=== PATIENT | female | born 1965 | race African-American/Black ===

== ENCOUNTER 2017-03-26 13:15 | Emergency (ER) | payer BC ==
[2017-03-26 14:39] LABS: #Eosinphils 0.1 thou/uL (0.0-0.7); #Lymphocytes 1.8 thou/uL (1.20-3.40); #Monocytes 0.5 thou/uL (0.11-0.59); #Neutrophils 3.2 thou/uL (1.40-6.50); %Basophils 0.6 % (0.0-1.0); %Eosinophils 2.6 % (0.0-10.0); %Lymphocytes 31.4 % (21.0-51.0); %Monocytes 9.1 % (0.0-10.0); %Neutrophils 56.2 % (42.0-75.0); Mean Corpuscular Hemoglobin 27.9 pg (27.0-31.0); Mean Corpuscular Volume 84.5 fl (81.0-99.0); Mean Platelet Volume 6.8 fL (7.4-10.4); Platelet Count 328 thou/uL (130-400); Red Blood Cell (RBC) Count 4.32 mill/uL (4.20-5.40); White Blood Cell (WBC) Count 5.7 thou/uL (4.8-10.8)
[2017-03-26 14:51] LABS: ALT (SGPT) 27 U/L (8-55); AST (SGOT) 19 U/L (5-34); Albumin 4.2 g/dL (3.5-5.0); Alkaline Phosphatase 70 U/L (40-150); Anion Gap 14 mmol/L (10-20); BUN (Urea Nitrogen) 14 mg/dL (9.8-20.1); Bilirubin, Total 0.5 mg/dL (0.2-1.2); Calc. Creatinine Clearance 0 mL/min (70-130); Calcium 9.5 mg/dL (7.8-10.44); Carbon Dioxide 25 mmol/L (22-29); Chloride 103 mmol/L (98-107); Estimated GFR-MDRD 80; Globulin 3.1 g/dL (2.4-3.5); Glucose 96 mg/dL (70-105); Lipase 15 U/L (8-78); Potassium 4.1 mmol/L (3.5-5.1); Protein, Total 7.3 g/dL (6.0-8.3); Sodium 138 mmol/L (136-145)
[2017-03-26 14:54] LABS: CKMB 2.5 ng/mL (0-6.6); Troponin I Less than 0.010 ng/mL (< 0.028)
--- NOTE | 2017-03-26 15:41 | RAD ---
AP VIEW CHEST: Date: 03/26/17 INDICATION: Chest pain with a history of influenza, cough, sore throat, and fever. COMPARISON: Prior exam dated 09/29/16. FINDINGS: No focal consolidation is evident. Heart size is accentuated by the exam technique. No acute osseous abnormality is evident. No definite pleural effusion is noted. Examination is not appreciably changed from the comparison study. IMPRESSION: No acute cardiopulmonary abnormality. POS: [facility]
[2017-03-26 17:46] LABS: Troponin I Less than 0.010 ng/mL (< 0.028)
== END 2017-03-26 17:59 | disposition home or self-care (01) ==
LOC: SCSER 13:15
DX: R07.9 Chest pain, unspecified (principal); I10 Essential (primary) hypertension; E78.5 Hyperlipidemia, unspecified; F41.9 Anxiety disorder, unspecified; Z79.899 Other long term (current) drug therapy; Z20.828 Contact with and (suspected) exposure to other viral communicable diseases
CPT/HCPCS: 36415; 71045; 80053; 82553; 83690; 84484; 85025; 93005

== ENCOUNTER 2018-06-30 14:28 | Outpatient (CLI) | payer BC ==
--- NOTE | 2018-06-30 16:08 | MRI ---
MRI OF BRAIN WITHOUT CONTRAST: 06/30/18 Multiplanar and multisequential imaging of the brain obtained. INDICATION: Ataxia. FINDINGS: The ventricles have normal size and position. No evidence of restricted diffusion. There is no mass o r edema. No evidence of white matter abnormality. No evidence of hemorrhage. The intracranial interna l carotid arteries and possible cerebral arteries show expected flow voids. Mucosal edema is seen in the floor of the left maxillary antrum and there is evidence of a mucosal re tention cyst at this location measuring up to 2 cm. IMPRESSION: 1. Unremarkable MRI of brain. 2. Mucosa edema with mucous retention cyst in the left maxillary sinus. POS: [facility]
== END 2018-06-30 14:29 | disposition home or self-care (01) ==
LOC: BICMRI 14:28
PROVIDERS: ATTEND Psychiatry & Neurology Neurology
DX: R27.0 Ataxia, unspecified (principal); G93.6 Cerebral edema; J34.1 Cyst and mucocele of nose and nasal sinus
CPT/HCPCS: 70551

== ENCOUNTER 2018-08-08 10:17 | Emergency (ER) | payer BC ==
[2018-08-08] MEDS ORDERED: Clopidogrel Bisulfate 75 MG TAB ONE (10:48)
[2018-08-08] MEDS ORDERED: Ketorolac Tromethamine 30 MG/ML VIAL ONE (10:49)
[2018-08-08] MEDS ORDERED: Aspirin Chewable 81 MG TAB ONE (10:54)
[2018-08-08 11:21] LABS: Hemoglobin 12.3 g/dL (12.0-16.0); Mean Corpuscular HGB CONC 32.1 g/dL (32.0-36.0); Mean Corpuscular Hemoglobin 27.5 pg (27.0-31.0); Mean Corpuscular Volume 85.7 fL (78.0-98.0); Platelet Count 226 thou/uL (130-400); RBC Distribution Width 14.3 % (11.5-14.5); Red Blood Cell (RBC) Count 4.48 mill/uL (4.20-5.40)
[2018-08-08 11:23] LABS: ALT (SGPT) 16 U/L (8-55); AST (SGOT) 14 U/L (5-34); Albumin 4.3 g/dL (3.5-5.0); Alkaline Phosphatase 74 U/L (40-150); Anion Gap 12 mmol/L (10-20); BUN (Urea Nitrogen) 14 mg/dL (9.8-20.1); Bilirubin, Total 0.4 mg/dL (0.2-1.2); CK (CPK) 223 U/L (29-168); Calc. Creatinine Clearance 0 mL/min (70-130); Calcium 9.8 mg/dL (7.8-10.44); Carbon Dioxide 26 mmol/L (22-29); Chloride 107 mmol/L (98-107); Estimated GFR-MDRD 64; Globulin 3.4 g/dL (2.4-3.5); Glucose 108 mg/dL (70-105); Potassium 3.4 mmol/L (3.5-5.1); Protein, Total 7.7 g/dL (6.0-8.3); Sodium 142 mmol/L (136-145)
[2018-08-08 11:36] LABS: Eosinophils 1 % (0-10); Lymphocytes 27 % (21-51); MDiff Complete? YES; Monocytes 5 % (0-10); Neutrophil 67 % (42-75); Platelet Morphology Comment Appears Adequate; RBC Morphology Normal
--- NOTE | 2018-08-08 12:34 | RAD ---
TWO VIEW CHEST: HISTORY: Chest pain. COMPARISON: 09/29/2016. FINDINGS: The lung sommers are clear. No evidence of infiltrate. Vascular markings are normal. Heart size upp er normal and stable. Osseous structures unremarkable. IMPRESSION: Unremarkable chest. POS: [facility]
== END 2018-08-08 11:52 | disposition home or self-care (01) ==
LOC: SCSER 10:17
DX: R07.81 Pleurodynia (principal); M54.9 Dorsalgia, unspecified; I10 Essential (primary) hypertension; E78.5 Hyperlipidemia, unspecified; F41.9 Anxiety disorder, unspecified; Z79.899 Other long term (current) drug therapy
CPT/HCPCS: 71046; 80053; 82550; 84484; 85025; 85379; 93005; J1885

== ENCOUNTER 2018-11-30 08:31 | Outpatient (CLI) | payer BC ==
--- NOTE | 2018-12-05 10:32 | MMO ---
Bilateral MAMMO Bilat Screen [facility]. CLINICAL HISTORY: Patient is 53 years old and is seen for screening. The patient has the following family history of breast cancer: cousin female. The patient has no personal history of cancer. VIEWS: The views performed were: bilateral craniocaudal with tomosynthesis and bilateral mediolateral oblique with tomosynthesis. FILMS COMPARED: The present examination has been compared to prior imaging studies performed at [place] on 12/29/2014. This study has been interpreted with the assistance of computer-aided detection. MAMMOGRAM FINDINGS: The breasts are almost entirely fat. There are no suspicious masses, suspicious calcifications, or new areas of architectural distortion. IMPRESSION: THERE IS NO MAMMOGRAPHIC EVIDENCE OF MALIGNANCY. A ROUTINE FOLLOW-UP MAMMOGRAM IN 1 YEAR IS RECOMMENDED. THE RESULTS OF THIS EXAM WERE SENT TO THE PATIENT. ACR BI-RADS Category 1 - Negative MAMMOGRAPHY NOTE: 1. A negative mammogram report should not delay a biopsy if a dominant of clinically suspicious mass is present. 2. Approximately 10% to 15% of breast cancers are not detected by mammography. 3. Adenosis and dense breasts may obscure an underlying neoplasm. Reported by: VALERI FITZPATRICK MD Electonically Signed: [id number]
== END 2018-11-30 08:32 | disposition home or self-care (01) ==
LOC: BICMAMMO 08:31
PROVIDERS: ATTEND Family Medicine
DX: Z12.31 Encounter for screening mammogram for malignant neoplasm of breast (principal); Z80.3 Family history of malignant neoplasm of breast
CPT/HCPCS: 77063; 77067

== ENCOUNTER 2019-03-06 11:09 | Outpatient (CLI) | payer BC ==
--- NOTE | 2019-03-06 13:03 | RAD ---
FRONTAL RADIOGRAPH CHEST 4 VIEWS RIGHT RIBS: Date: 03/06/2019 COMPARISON: None. HISTORY: Pain on the right. FINDINGS: Frontal radiograph of chest demonstrates no pneumothorax, pleural fluid, focal consolidation, or alve olar edema. Four dedicated right-sided rib radiographs demonstrate no displaced right-sided rib fracture. If symp toms persist, CT examination suggested. IMPRESSION: No acute findings. POS: [facility]
== END 2019-03-06 11:10 | disposition home or self-care (01) ==
LOC: SCSRAD 11:09
PROVIDERS: ATTEND Family Medicine
DX: R07.89 Other chest pain (principal)

== ENCOUNTER 2019-05-01 11:24 | Outpatient (CLI) | payer BC ==
--- NOTE | 2019-05-01 12:52 | ULT ---
US Soft Tissue Abd Wall History: Pain Comparison: None. Findings: Real-time grayscale evaluation of the anterior abdominal wall was performed. Possible fat-containing ventral hernia. A cine was performed for evaluation for peristalsis is limite d. No change in the sitting or standing position. Impression: Likely ventral hernia containing fat and possibly bowel. CT examination recommended.
== END 2019-05-01 11:25 | disposition home or self-care (01) ==
LOC: SCSULT 11:24
PROVIDERS: ATTEND Family Medicine
DX: K43.9 Ventral hernia without obstruction or gangrene (principal)
CPT/HCPCS: 76705

== ENCOUNTER 2021-04-07 12:06 | Outpatient (CLI) | payer BC | END 2021-04-07 12:07 | disposition home or self-care (01) | LOC: BICMAMMO 12:06 | PROVIDERS: ATTEND Family Medicine | DX: Z12.31 Encounter for screening mammogram for malignant neoplasm of breast (principal); Z80.3 Family history of malignant neoplasm of breast | CPT/HCPCS: 77063; 77067 ==

== ENCOUNTER 2022-05-05 12:12 | Outpatient (CLI) | payer BC | END 2022-05-05 12:13 | disposition home or self-care (01) | LOC: BICMAMMO 12:12 | PROVIDERS: ATTEND Family Medicine | DX: Z12.31 Encounter for screening mammogram for malignant neoplasm of breast (principal); Z80.3 Family history of malignant neoplasm of breast | CPT/HCPCS: 77063; 77067 ==

== ENCOUNTER 2022-07-06 08:56 | Outpatient (CLI) | payer BC | END 2022-07-06 08:57 | disposition home or self-care (01) | LOC: BICULT 08:56 | PROVIDERS: ATTEND Family Medicine | DX: E04.2 Nontoxic multinodular goiter (principal) | CPT/HCPCS: 76536 ==